=== PATIENT | male | born 1980 | race Caucasian/White ===

== ENCOUNTER 2024-06-24 18:01 | Emergency (ER) | payer SELFPAY ==
[2024-06-24] MEDS: Ibuprofen 600 MG Tab PO ONE (19:40)
[2024-06-24] MEDS: Benzonatate 100 MG Cap PO ONE (22:07)
== END 2024-06-24 22:27 | disposition home or self-care (01) ==
LOC: MW.ED 18:01
DX: B34.9 Viral infection, unspecified (principal); Z90.49 Acquired absence of other specified parts of digestive tract; Z88.8 Allergy status to other drugs, medicaments and biological substances; Z79.899 Other long term (current) drug therapy
CPT/HCPCS: 71046; 99283; A9270